=== PATIENT | female | born 1965 | race Caucasian/White ===

== ENCOUNTER 2023-09-13 09:54 | Emergency (ER) | payer OTHER ==
[2023-09-13 10:02] VITALS: BMI 27.4
[2023-09-13 11:33] LABS: BASO % 0.5 % (0-2.0); EOS % 5.2 % (0-4.5); HEMOGLOBIN 13.3 GM/dL (10.7-15.3); LYMPH % 29.3 % (8-40); MCHC 34.1 g/dl (32.0-36.0); MEAN CELL VOLUME 82.2 fl (80-96); MEAN PLT VOLUME 7.3 fl (7.5-11.1); MONO % 8.3 % (3.8-10.2); NEUT % 56.7 % (42.8-82.8); PLATELET COUNT 249 10^3/uL (134-434); RBC 4.74 M/mm3 (3.60-5.2); RDW 13.8 % (11.6-15.6); WHITE BLOOD COUNT 4.9 K/mm3 (4.0-10.0)
[2023-09-13 12:00] LABS: POTASSIUM 3.9 mmol/L (3.5-5.1)
[2023-09-13 12:03] LABS: BLOOD UREA NITROGEN 13.1 mg/dL (7-18)
[2023-09-13 12:06] LABS: CREATININE 0.9 mg/dL (0.55-1.3)
[2023-09-13 12:36] VITALS: RESP 16
[2023-09-13 18:21] VITALS: BP 123/79; PULSE 72; TEMP 98.1
== END 2023-09-13 18:22 | disposition home or self-care (01) ==
LOC: JER 09:54
DX: R07.89 Other chest pain (principal); R91.1 Solitary pulmonary nodule; R42 Dizziness and giddiness; R11.0 Nausea; R06.02 Shortness of breath
CPT/HCPCS: 36415; 71045-TC-FY; 80048; 83880; 84484; 85025; 93005; 93010; 99285-25

== ENCOUNTER 2024-06-22 22:45 | Emergency (ER) | payer OTHER ==
[2024-06-22 22:51] VITALS: BP 166/95; PULSE 94; RESP 16; TEMP 97.8; BMI 29.8
[2024-06-22] MEDS: LIDOCAINE 5% TOPICAL PATCH TP ONE (23:50)
[2024-06-23 01:02] LABS: INR 0.97 (0.83-1.09); PROTHROMBIN TIME (PATIENT) 10.7 SEC (9.7-13.0)
[2024-06-23 01:03] LABS: ABSOLUTE IMMATURE GRANULOCYTES 0.02 x10^3/uL (0.0-0.031); BASOPHILS # 0.04 x10^3/uL (0.01-0.08); EOSINOPHIL % 3.9 % (0.7-5.8); EOSINOPHILS # 0.23 x10^3/uL (0.04-0.36); HEMATOCRIT 40.4 % (34.1-44.9); HEMOGLOBIN 12.7 g/dL (11.2-15.7); MCHC 31.4 g/dl (32.2-35.5); MEAN CELL VOLUME 84.2 fl (79.4-94.8); MEAN PLT VOLUME 9.9 fl (9.4-12.3); MONOCYTE # 0.48 x10^3/uL (0.24-0.86); MONOCYTE % 8.2 % (4.7-12.5); PLATELET COUNT 251 x10^3/uL (182-369); RDW 13.2 % (12.3-16.6)
[2024-06-23 01:05] LABS: ACTIVATED PTT 28.2 SECONDS (25.2-36.5)
[2024-06-23 01:09] LABS: POTASSIUM 4.4 mmol/L (3.5-5.1)
[2024-06-23 01:10] LABS: CALCIUM 9.8 mg/dL (8.5-10.1)
[2024-06-23 01:11] LABS: ALBUMIN 3.9 g/dl (3.4-5.0); BLOOD UREA NITROGEN 21.2 mg/dL (7-18)
[2024-06-23 01:14] LABS: CREATININE 0.8 mg/dL (0.55-1.3)
[2024-06-23 01:16] LABS: BILIRUBIN,TOTAL 0.4 mg/dL (0.2-1); TOT PROT 7.1 g/dl (6.4-8.2)
[2024-06-23] MEDS: ACETAMINOPHEN 1000 MG/100 ML BAG IVPB ONE (01:18)
[2024-06-23 01:19] LABS: N-TERMINAL BNP 39.8 pg/ml (5-125)
[2024-06-23] MEDS ORDERED: ACETAMINOPHEN INJECTION 100 ML ONE (01:44)
[2024-06-23] MEDS ORDERED: LIDOCAINE 5% TOPICAL PATCH ONE (01:45)
[2024-06-23] MEDS ORDERED: LIDOCAINE PATCH REMOVAL MC ONE (12:00)
== END 2024-06-23 03:38 | disposition home or self-care (01) ==
LOC: JER 22:45
DX: R07.89 Other chest pain (principal); M54.6 Pain in thoracic spine; M79.89 Other specified soft tissue disorders
CPT/HCPCS: 0241U-QW; 36415; 71045-TC-FY; 80053; 83735; 83880; 84484; 85025; 85610; 85730; 93005; 93010; 93971-TC; 99285-25